=== PATIENT | female | born 1965 | race Caucasian/White ===

== ENCOUNTER 2017-09-26 07:37 | Day surgery (SDC) | payer OTHER ==
[~2017-09-26] VITALS: Ht 165.1 cm; Wt 72.0 kg
[2017-09-26 08:14] VITALS: Ht 165.1 cm; Wt 72.0 kg
[2017-09-26 08:38] VITALS: BP 110/74; PULSE 59; RESP 15
[2017-09-26] MEDS ORDERED: LIDOCAINE 2% (SDV) 5 ML INJ ONE (09:02)
[2017-09-26] MEDS ORDERED: PROPOFOL 60 ML ONE (09:02)
--- NOTE | 2017-09-26 09:53 | OPPN ---
Date/Time of Note Date/Time of Note DATE: 09/26/17 TIME: 09:51 Operative Report Preoperative Diagnosis Abdominal pain Chronic heartburn Screening Postoperative Diagnosis Hiatal hernia Gastroesophageal reflux disease Multiple gastric polyps Gastritis Internal hemorrhoids No colon neoplasm is identified Operation/Procedure Performed Esophagogastroduodenoscopy and biopsy Colonoscopy Surgeon see signature line personal injury legal assistant None Anesthesia: MAC Estimated blood loss: none Transfusion Required none Specimen Biopsy gastric polyp Grafts/Implants none Complications none NINI TEIXEIRA MD Sep 26, 2017 09:53
[2017-09-26 10:09] VITALS: BP 119/79; PULSE 52; RESP 18
--- NOTE | 2017-09-26 12:56 | GILP ---
DATE OF PROCEDURE: 09/26/2017 NAME OF PROCEDURES: 1. Esophagogastroduodenoscopy and biopsy. 2. Colonoscopy. SURGEON: Nini Pickens MD. PREOPERATIVE DIAGNOSES: 1. Abdominal pain. 2. Chronic heartburn. 3. Screening colonoscopy. POSTOPERATIVE DIAGNOSES: 1. Hiatal hernia. 2. Gastroesophageal reflux disease. 3. Multiple gastric polyps and biopsies were taken for histopathology. 4. Colonoscopy all the way to the cecum. 5. Internal hemorrhoids. 6. No colon neoplasm was identified. INDICATION FOR THE PROCEDURE: Ms. Claudia Pantoja is a 51-year-old female patient who had upper abdomi nal pain and chronic heartburn, not responding to therapy. The patient also needed a screening colo noscopy. The procedures and possible complications were well explained to the patient. The patient understoo d and consented to the procedure. DESCRIPTION OF PROCEDURE: Under the influence of anesthesia, the gastroscope was carefully introduc ed into the esophagus and under direct vision, it was advanced to the stomach and through the pyloru s into the duodenal bulb and descending duodenum. FINDINGS: ESOPHAGUS: The mucosa was normal. STOMACH: The patient had gastritis with erosions. She had multiple gastric polyps. Biopsies were taken for histopathology. Duodenum was normal. The colonoscope was carefully introduced in the rectum and under direct vision, it was advanced all the way to the cecum. FINDINGS: The patient had internal hemorrhoids. No colon neoplasm was identified. She tolerated the procedures very well and there was no complication from the procedures. At the en d of the procedures, she was awake with stable vital signs and she was discharged home to the care o f her family. IMPRESSION: Please see postoperative diagnoses. PLAN: 1. Zantac 300 mg p.o. b.i.d. 2. Await histopathology reports. 3. Next screening colonoscopy in 10 years. 4. The patient was advised high fiber diet. Dictated By: NINI CALIXTO/NERISSA Conf#: [id number] DID#: [id number]
== END 2017-09-26 19:45 | disposition home or self-care (01) ==
LOC: GIL 07:37
PROVIDERS: ATTEND Internal Medicine Gastroenterology
DX: Z12.11 Encounter for screening for malignant neoplasm of colon (principal); K31.7 Polyp of stomach and duodenum; K44.9 Diaphragmatic hernia without obstruction or gangrene; K21.9 Gastro-esophageal reflux disease without esophagitis; K64.8 Other hemorrhoids
CPT/HCPCS: 43239; 45378; 88305; 88312; Z7610

== ENCOUNTER 2019-02-27 05:46 | Day surgery (SDC) | payer OTHER ==
[~2019-02-27] VITALS: Ht 162.6 cm; Wt 77.3 kg
[2019-02-27] MEDS ORDERED: ZANTAC (06:55)
[2019-02-27] MEDS ORDERED: FIBROMYALGIA MED (06:55)
[2019-02-27] MEDS ORDERED: LEXAPRO (06:55)
[2019-02-27 07:00] VITALS: Ht 162.6 cm; Wt 77.3 kg
[2019-02-27 07:44] VITALS: BP 113/71; PULSE 62; RESP 16
[2019-02-27 08:25] VITALS: BP 115/70; PULSE 64; RESP 16
[2019-02-27 08:40] VITALS: BP 117/78; PULSE 62; RESP 18
[2019-02-27] MEDS ORDERED: FENTAnyl 50 MCG/ML VIAL ONE (09:28)
[2019-02-27] MEDS ORDERED: MIDAZOLAM 1 MG/ML 2 ML INJ ONE (09:28)
--- NOTE | 2019-03-03 06:08 | CONS ---
DATE OF ADMISSION: 02/27/2019 DATE OF CONSULTATION: PATIENT NAME: CLAUDIA CERVANTES TYPE OF CONSULTATION: Preoperative gastroenterology consultation note. Dear Dr. Garcia: I thank you very much for this kind referral. HISTORY OF PRESENT ILLNESS: Ms. Claudia Cervantes is a 53-year-old female patient who has been referred t o me for further evaluation of chronic heartburn not responding to therapy with Zantac. She is not o n nonsteroidal anti-inflammatory agents. The patient also complains of upper abdominal pain. Appeti te is good. No weight loss. No history of gallstones or liver disease. The patient denies any schwab ge in the bowel habit. She had a screening colonoscopy year and a half ago and no colon neoplasm was identified. Not a hypertensive or diabetic. No heart disease, lung problem or kidney disease. Sta tus post laparoscopic surgery for endometriosis. The patient has history of depression and she is on Lexapro. Nonsmoker. No alcohol abuse. FAMILY HISTORY: No family history of gastrointestinal tract neoplasm. ALLERGIES: 1. MOTRIN. 2. PENICILLIN. PHYSICAL EXAMINATION: VITAL SIGNS: She is 5 feet 5 inches tall and weighs 165 pounds. HEART: Normal heart sounds. LUNGS: Clear. ABDOMEN: Soft, no masses. Normal bowel sounds. NEUROLOGIC: Normal neurological exam. IMPRESSION: 1. Chronic heartburn and upper abdominal pain, not responding to therapy with Zantac. The patient h ad a screening colonoscopy a year and a half ago and no colon neoplasm was identified. 2. Status post laparoscopic surgery for endometriosis. 3. History of depression. She is on Lexapro. 4. ALLERGY TO MOTRIN AND PENICILLIN. PLAN: Endoscopy for further evaluation. The procedure and possible complications are well explained to the patient. She understands and cons ents to the procedure. I thank you once again. With warmest personal regards, Dictated By: NINI TEIXEIRA MD GD/NTS Conf#: [id number] DID#: [id number] CC: FRIDA GARCIA MD;*EndCC*
== END 2019-02-27 12:59 | disposition home or self-care (01) ==
LOC: GIL 05:46
PROVIDERS: ATTEND Internal Medicine Gastroenterology
DX: K21.9 Gastro-esophageal reflux disease without esophagitis (principal)
CPT/HCPCS: 43239; 88305; 88312; J2250; J3010; Z7610